=== PATIENT | female | born 1990 | race African-American/Black ===

== ENCOUNTER 2019-01-07 09:46 | Observation (INO) | payer SELFPAY ==
[~2019-01-07] VITALS: Ht 170.2 cm; Wt 74.0 kg
[2019-01-07] MEDS ORDERED: ONDANSETRON HCL INJ 2MG/ML 2ML 2 MG/ML VIAL IV STA (10:50)
[2019-01-07] MEDS ORDERED: SODIUM CHLORIDE 0.9% 1000ML 1,000 ML IV STA (10:50)
[2019-01-07 11:09] LABS: CLARITY,URINE HAZY (CLEAR); COLOR,URINE YELLOW (YELLOW)
[2019-01-07 11:11] LABS: LEUKOCYTE ESTERASE ,URINE NEGATIVE (NEGATIVE); NITRITE,URINE NEGATIVE (NEGATIVE); PROTEIN,URINE DIPSTICK NEGATIVE (NEGATIVE)
[2019-01-07 11:12] LABS: BILIRUBIN,URINE NEGATIVE (NEGATIVE); KETONES,URINE 2+ (NEGATIVE); URINE UROBILINOGEN 0.2 mg/dL (0.2 - 1)
[2019-01-07 11:13] LABS: PREGNANCY TEST, URINE NEGATIVE (NEGATIVE)
[2019-01-07 11:18] LABS: EPITHELIAL CELLS,URINE MODERATE /LPF
[2019-01-07 11:19] LABS: BACTERIA,URINE FEW /HPF; RBC,URINE 0-5 /HPF (0-5); WBC,URINE (MAN) 0-5 /HPF (0-5)
--- NOTE | 2019-01-07 11:52 | NUR ---
CURT COLEMAN IN TO [facility] IN TREATMENT ROOM. SL STARTED, BLOOD COLLECTED AND URINE COLLECTED, SENT TO LAB ORDERED.
[2019-01-07] MEDS ORDERED: DICYCLOMINE HCL 20 MG/2 ML VIAL IM ONE (12:00)
[2019-01-07 12:43] LABS: BASOPHILS % 0.2 % (0.0-1.0); HEMATOCRIT 40.7 % (34.2-44.1); HEMOGLOBIN 14.2 g/dL (12.0-16.0); LYMPHOCYTES # (AUTO) 1.7 (1.0-3.2); LYMPHOCYTES % 8.7 % (18.0-39.1); MEAN CORPUSCULAR HEMOGLOBIN 32.7 pg (28-32); MEAN CORPUSCULAR HGB CONC 34.9 g/dL (31-35); MEAN CORPUSCULAR VOLUME 93.8 fL (81-99); MONOCYTES # (AUTO) 1.8 (0.2-0.8); NEUTROPHILS # (AUTO) 16.1 (2.1-6.9); NEUTROPHILS % 81.5 % (38.7-80.0); PLATELET COUNT 298 x10e3/uL (140-360); RED BLOOD COUNT 4.34 x10e6/uL (3.6-5.1); RED CELL DISTRIBUTION WIDTH 11.9 % (11.7-14.4)
[2019-01-07 13:00] LABS: ALANINE AMINOTRANSFERASE 10 IU/L (0-55); ALBUMIN 4.1 g/dL (3.5-5.0); ALKALINE PHOSPHATASE 67 IU/L (40-150); AMYLASE 78 U/L (25-125); ANION GAP 13.3 mmol/L (8-16); BLOOD UREA NITROGEN 5 mg/dL (7-26); BUN/CREATININE RATIO 6 (6-25); CALCIUM 9.9 mg/dL (8.4-10.2); CARBON DIOXIDE 27 mmol/L (22-29); CHLORIDE 95 mmol/L (98-107); CREATININE, SERUM 0.77 mg/dL (0.57-1.11); EST GLOMERULAR FILTRATION RATE > 60 ML/MIN (60-); GLUCOSE 105 mg/dL (74-118); POTASSIUM 3.3 mmol/L (3.5-5.1); SODIUM 132 mmol/L (136-145)
[2019-01-07 13:02] LABS: LIPASE < 4 U/L (8-78)
[2019-01-07] MEDS ORDERED: CEFOXITIN SOD 1 GM VIAL ONE (13:25)
[2019-01-07] MEDS ORDERED: ROCURONIUM BROMIDE 10 MG/ML 5ML VIAL ONE (13:25)
[2019-01-07] MEDS ORDERED: SUCCINYLCHOLINE 200 MG/10 ML SYR ONE (13:25)
[2019-01-07] MEDS ORDERED: KETOROLAC TROMETHAMINE 30 MG/ML VIAL ONE (13:25)
[2019-01-07] MEDS ORDERED: DEXAMETHASONE SOD PHOS INJ 4 MG/ML VIAL ONE (13:25)
[2019-01-07] MEDS ORDERED: PROPOFOL IV EMULSION 10 MG/ML 20 ML VIAL ONE (13:25)
[2019-01-07] MEDS ORDERED: LIDOCAINE HCL 2% LOCAL INJ 5 ML SDV VIAL INJ ONE (13:25)
[2019-01-07] MEDS ORDERED: SEVOFLURANE INHAL SOLN 250 ML PEN BTL ONE (13:25)
[2019-01-07] MEDS ORDERED: ONDANSETRON HCL INJ 2MG/ML 2ML 2 MG/ML VIAL ONE (13:25)
--- NOTE | 2019-01-07 13:58 | Diagnostic Imaging Report ---
EXAMINATION: Right upper quadrant ultrasound CLINICAL INDICATION: Back pain, cholelithiasis COMPARISON: None DISCUSSION: Transverse and longitudinal images of the right upper quadrant were obtained. The liver is normal in size measuring 13.4centimeters in length in the right midclavicular line and shows normal echogenicity. No focal masses are seen in the liver. There is no intrahepatic biliary dilatation. The common bile duct is normal in caliber and measures 0.3 cm. The main portal vein is normal in caliber and measures 0.8 cm with normal hepatopetal flow. The gallbladder is normal in appearance without stones, wall thickening or pericholecystic fluid. The sonographic Rodriguez's sign is negative. The visualized portions of the pancreatic body are unremarkable. The right kidney measures 11.5 centimeters in length. There is normal renal cortical echogenicity and no hydronephrosis, mass or shadowing calculi. 0.9 cm superior simple cyst. 1.4 cm isoechoic lesion in the superior pole. The visualized portions of the great vessels are normal. No free fluid is seen. IMPRESSION: Gallbladder normal. Simple right renal cyst 0.9 cm. Indeterminate right renal hypoechoic lesion 1.4 cm. Signed by: Dr. Elian Singh M.D. on 01/07/2019 1:55 PM
--- NOTE | 2019-01-07 14:08 | Diagnostic Imaging Report ---
EXAM: CT of the abdomen and pelvis WITH contrast HISTORY: Pain, rule out appendicitis COMPARISON: Right upper quadrant ultrasound performed earlier the same date.. TECHNIQUE: The abdomen and pelvis were scanned utilizing a multidetector helical scanner. Coronal and sagittal reformats are provided. PROTOCOL: Routine IV CONTRAST: 100 cc of Isovue-370. ORAL CONTRAST: Water RADIATION DOSE: Total DLP: 314.86 mGy*cm Estimated effective dose: (DLP x 0.015 x size factor) Dose modulation, iterative reconstruction, and/or weight based adjustment of the mA/kV was utilized to reduce the radiation dose to as low as reasonably achievable. COMPLICATIONS: None FINDINGS: LOWER THORAX: Unremarkable. HEPATOBILIARY: Punctate calcification within the right lobe. No mass. No biliary dilation. No calcified gallstone. SPLEEN: No splenomegaly. PANCREAS: No focal masses or ductal dilatation. ADRENALS: No discrete adrenal nodule. KIDNEYS/URETERS: No hydronephrosis, stones, or definite solid mass lesions. A subcentimeter hypodensity near the superior pole of the right kidney, compatible with a small cyst seen on the comparison ultrasound. PELVIC ORGANS/BLADDER: The uterus is anteflexed. A 2.5 cm fluid density within the right ovary, compatible with a dominant follicle. GI TRACT: Calcific densities (appendicoliths) at the mid appendix with dilation and fluid-filled lumen of the distal appendix with surrounding fat stranding. No evidence of rupture or periappendiceal abscess. PERITONEUM / RETROPERITONEUM: No free air or fluid. LYMPH NODES: No pathologically enlarged lymph node. VESSELS: Unremarkable. BONES: No aggressive osseous lesion or acute fracture. Ventral angulation of the sacrococcygeal junction. SOFT TISSUES: There density foci within the superficial adipose tissue overlying the right gluteal region, correlate for recent injection. IMPRESSION: Acute appendicitis. Discussed with Dr. Noriega via phone on January 07, 2019 at 1402. Signed by: Dr. Joseph Recio D.O., M.M.M. on 01/07/2019 2:04 PM
[2019-01-07] MEDS ORDERED: PIPER-TAZ 3.375 GM 50 ML IV STA (14:12)
[2019-01-07] MEDS ORDERED: MORPHINE SULFATE INJ 4 MG/ML INJ 1ML IV NR (14:30)
[2019-01-07] MEDS ORDERED: ONDANSETRON HCL INJ 2MG/ML 2ML 2 MG/ML VIAL IV NR (14:30)
[2019-01-07] MEDS: SODIUM CHLORIDE 0.9% 1000ML 1,000 ML IV SCH ×2 (14:36→23:00)
--- OUTSIDE RECORDS SUMMARY | 2019-01-07 14:46 | XMS REPORT ---
Author Author 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 Allergies, Adverse Reactions, Alerts This patient has no known allergies or adverse reactions. Medications This patient has no known medications. Results Test Description Test Time Test Comments Text Results Atomic Results Result Comments CT ABDOMEN/PELVIS W 2019-01-07 13:48:00 [place] [address] Patient Name: KRISTI MARIO MR #: [id number] : 1990 Age/Sex: 28/F Req #: [id number] Adm Physician: Ordered by: VIRGINIA COATES [employer] SPECIALIST Report #: [id number] Location: ER Room/Bed: Procedure: [id number] CT/CT ABDOMEN/PELVIS W Exam Date: 01/07/19 Exam Time: 1327 REPORT STATUS: Signed EXAM: CT of the abdomen and pelvis WITH contrast HISTORY: Pain, rule out appendicitis COMPARISON: Right upper quadrant ultrasound performed earlier the same date.. TECHNIQUE: The abdomen and pelvis were scanned utilizing a multidetector helical scanner. Coronal and sagittal reformats are provided. PROTOCOL: Routine IV CONTRAST: 100 cc of Isovue-370. ORAL CONTRAST: Water RADIATION DOSE: Total DLP: 314.86 mGy*cm Estimated effective dose: (DLP x 0.015 x size factor) Dose modulation, iterative reconstruction, and/or weight based adjustment of the mA/kV was utilized to reduce the radiation dose to as low as reasonably achievable. COMPLICATIONS: None FINDINGS: LOWER THORAX: Unremarkable. HEPATOBILIARY: Punctate calcification within the right lobe. No mass. No biliary dilation. No calcified gallstone. SPLEEN: No splenomegaly. PANCREAS: No focal masses or ductal dilatation. ADRENALS: No discrete adrenal nodule. KIDNEYS/URETERS: No hydronephrosis, stones, or definite solid mass lesions. A subcentimeter hypodensity near the superior pole of the right kidney, compatible with a small cyst seen on the comparison ultrasound. PELVIC ORGANS/BLADDER: The uterus is anteflexed. A 2.5 cm fluid density within the right ovary, compatible with a dominant follicle. GI TRACT: Calcific densities (appendicoliths) at the mid appendix with dilation and fluid-filled lumen of the distal appendix with surrounding fat stranding. No evidence of rupture or periappendiceal abscess. PERITONEUM / RETROPERITONEUM: No free air or fluid. LYMPH NODES: No pathologically enlarged lymph node. VESSELS: Unremarkable. BONES: No aggressive osseous lesion or acute fracture. Ventral angulation of the sacrococcygeal junction. SOFT TISSUES: There density foci within the superficial adipose tissue overlying the right gluteal region, correlate for recent injection. IMPRESSION: Acute appendicitis. Discussed with Dr. Noriega via phone on January 07, 2019 at 1402. Signed by: Dr. Man Recio D.O., M.M.M. on 01/07/2019 2:04 PM Dictated By: MAN RECIO DO 1405 Transcribed By: ALEX on 01/07/19 1402 COPY TO: VIRGINIA COATES NP GALLBLADDER 2019-01-07 13:34:00 [place] [address] Patient Name: KRISTI MARIO MR #: [id number] : 1990 Age/Sex: 28/F Req #: [id number] Adm Physician: Ordered by: VIRGINIA COATES [employer] SPECIALIST Report #: [id number] Location: ER Room/Bed: Procedure: [id number] US/US GALLBLADDER Exam Date: Exam Time: REPORT STATUS: Signed EXAMINATION: Right upper quadrant ultrasound CLINICAL INDICATION: Back pain, cholelithiasis COMPARISON: None DISCUSSION: Transverse and longitudinal images of the right upper quadrant were obtained. The liver is normal in size measuring 13.4centimeters in length in the right midclavicular line and shows normal echogenicity. No focal masses are seen in the liver. There is no intrahepatic biliary dilatation. The common bile duct is normal in caliber and measures 0.3 cm. The main portal vein is normal in caliber and measures 0.8 cm with normal hepatopetal flow. The gallbladder is normal in appearance without stones, wall thickening or pericholecystic fluid. The sonographic Rodriguez's sign is negative. The visualized portions of the pancreatic body are unremarkable. The right kidney measures 11.5 centimeters in length. There is normal renal cortical echogenicity and no hydronephrosis, mass or shadowing calculi. 0.9 cm superior simple cyst. 1.4 cm isoechoic lesion in the superior pole. The visualized portions of the great vessels are normal. No free fluid is seen. IMPRESSION: Gallbladder normal. Simple right renal cyst 0.9 cm. Indeterminate right renal hypoechoic lesion 1.4 cm. Signed by: Dr. Cong Martinze M.D. on 01/07/2019 1:55 PM Dictated By: CONG MARTINEZ MD 1135 Transcribed By: ALEX on 01/07/19 2112 COPY TO: VIRGINIA COATES NP
[2019-01-07] MEDS ORDERED: FENTANYL CITRATE/PF 100MCG/2 ML INJ ONE (14:55)
[2019-01-07] MEDS ORDERED: MIDAZOLAM HCL 2 MG/2 ML VIAL ONE (14:55)
[2019-01-07] MEDS ORDERED: BUPIVACAINE 0.25%/EPI 30ML SDV INJ ONE (16:19)
--- NOTE | 2019-01-07 16:25 | NUR ---
PT TO OR VIA TRANSPORT TEAM. PT'S FAMILY AT HER SIDE.
[2019-01-07] MEDS ORDERED: MEPERIDINE HCL INJ 25 MG/ML VIAL ONE ×2 (18:02→18:10)
[2019-01-07] MEDS ORDERED: IOPAMIDOL 370 MG/ML 200 ML INFUS..BTL INJ ONE (18:19)
[2019-01-07] MEDS ORDERED: SODIUM CHLORIDE 0.9% 50ML 50 ML ONE (18:19)
[2019-01-07] MEDS ORDERED: HYDROMORPHONE 2MG/ML 2 MG/ML ML ONE (18:24)
[2019-01-07] MEDS ORDERED: PROMETHAZINE HCL (IM) 25 MG/ML VIAL ONE (18:36)
[2019-01-07 20:00] VITALS: BP 107/64
[2019-01-07] MEDS: MORPHINE SULFATE INJ 4 MG/ML INJ 1ML IV PRN (20:14)
[2019-01-07 21:20] LABS: LYMPHOCYTES % (MANUAL) 14 % (19-48); MONOCYTES % (MANUAL) 6 % (3.4-9.0); NEUTROPHILS % (MANUAL) 80 % (40-74)
[2019-01-07 21:22] LABS: PLATELET ESTIMATE ADEQUATE; PLATELET MORPHOLOGY COMMENT NORMAL; RBC MORPHOLOGY COMMENT NORMAL
[2019-01-07] MEDS: ONDANSETRON HCL INJ 2MG/ML 2ML 2 MG/ML VIAL IV PRN (22:03)
[2019-01-07] MEDS: PIPER-TAZ 3.375 GM 50 ML IV SCH (22:03)
[2019-01-07 23:06] VITALS: BP 107/64
[2019-01-08] VITALS: BP 97/52
--- NOTE | 2019-01-08 00:30 | Consultation ---
DATE OF CONSULTATION: CHIEF COMPLAINT: Abdominal pain. HISTORY OF PRESENT ILLNESS: The patient is a 28-year-old female with 1-day history of pain in the right lower quadrant with repeated bouts of vomiting. No diarrhea, fever, or chills. PAST MEDICAL HISTORY: Negative. She has no previous surgery. ALLERGIES: THE PATIENT HAD NO DRUG ALLERGIES. SOCIAL HABITS: She does not smoke or drink alcohol. REVIEW OF SYSTEMS: No chest pain or shortness of breath or cough. PHYSICAL EXAMINATION: VITAL SIGNS: Stable, afebrile. GENERAL: She is awake, alert, in moderate discomfort. HEENT: Sclerae are nonicteric. NECK: Supple. LUNGS: Clear. HEART: Regular rate and rhythm. ABDOMEN: Soft with guarding tenderness in the right lower quadrant. LABORATORY DATA: White cell count is 19.7, hemoglobin of 14. Creatinine is 0.7. CT of the abdomen show evidence of acute appendicitis. ASSESSMENT: Acute appendicitis. PLAN: Laparoscopic appendectomy. Attendant risks discussed. Blayne Mo MD DNL/MODL /[id number]
--- NOTE | 2019-01-08 00:55 | Operative Report ---
DATE OF PROCEDURE: 01/07/2019 SURGEON: Blayne Mo MD PREOPERATIVE DIAGNOSIS: Appendicitis. POSTOPERATIVE DIAGNOSIS: Appendicitis. PROCEDURE: Laparoscopic appendectomy. PESTICIDE CHEMIST: None. ANESTHESIA: General, Dr. Alamo. INDICATION: A 28-year-old female with history of abdominal pain for one day with vomiting. CT scan showed appendicitis. The patient has consented for laparoscopic appendectomy. Attendant risks discussed. PROCEDURE FINDING: Gangrenous appendicitis without rupture. DESCRIPTION OF PROCEDURE: The patient was brought to the OR intubated. Abdomen was prepped with alcohol and draped in sterile fashion. Laparoscopic access carried out with an infraumbilical incision and a 12 mm port for insufflation. Under direct vision, the port site was placed in the right upper quadrant and suprapubic. The appendix noted to be grossly inflamed and gangrenous, but nonperforated. Next, the appendix isolated with blunt dissection. Next, the appendix was controlled with the EndoGIA stapler blue load. The mesentery was controlled with a vascular load of the same stapler. Appendix was detached. It was placed in an Endopouch and retrieved out of the peritoneal cavity. Operative field was then irrigated. Hemostasis was achieved. All ports were then removed under direct vision. Fascial closure with #0 Vicryl. Skin was closed with subcuticular stitch. The patient was extubated and transported to recovery room. ESTIMATED BLOOD LOSS: 5 mL. Blayne Mo MD DNL/MODL /[id number]
[2019-01-08] MEDS: MORPHINE SULFATE INJ 4 MG/ML INJ 1ML IV PRN ×2 (01:56→08:40)
[2019-01-08] MEDS: ONDANSETRON HCL INJ 2MG/ML 2ML 2 MG/ML VIAL IV PRN ×2 (01:56→08:40)
[2019-01-08 04:00] VITALS: BP 113/56
[2019-01-08] MEDS: PIPER-TAZ 3.375 GM 50 ML IV SCH ×2 (05:36→14:00)
--- NOTE | 2019-01-08 07:19 | NUR ---
Received patient in report this morning. Patient is resting in bed at this time. 3 family members at bedside. No S&S of distress noted at this time.
[2019-01-08 08:16] VITALS: BP 93/50
[2019-01-08 08:20] LABS: BASOPHILS % 0.3 % (0.0-1.0); EOSINOPHILS % 0.1 % (0.0-6.0); HEMATOCRIT 32.1 % (34.2-44.1); HEMOGLOBIN 11.1 g/dL (12.0-16.0); LYMPHOCYTES # (AUTO) 2.8 (1.0-3.2); MEAN CORPUSCULAR HEMOGLOBIN 32.8 pg (28-32); MEAN CORPUSCULAR HGB CONC 34.6 g/dL (31-35); MONOCYTES % 6.9 % (4.4-11.3); NEUTROPHILS % 72.2 % (38.7-80.0); PLATELET COUNT 213 x10e3/uL (140-360); RED BLOOD COUNT 3.38 x10e6/uL (3.6-5.1); RED CELL DISTRIBUTION WIDTH 12.2 % (11.7-14.4)
[2019-01-08 08:37] LABS: ALANINE AMINOTRANSFERASE 6 IU/L (0-55); ALBUMIN/GLOBULIN RATIO 1.1 (0.8-2.0); ALKALINE PHOSPHATASE 46 IU/L (40-150); ANION GAP 9.3 mmol/L (8-16); BLOOD UREA NITROGEN < 5 mg/dL (7-26); CARBON DIOXIDE 24 mmol/L (22-29); CHLORIDE 106 mmol/L (98-107); CREATININE, SERUM 0.69 mg/dL (0.57-1.11); EST GLOMERULAR FILTRATION RATE > 60 ML/MIN (60-); GLUCOSE 90 mg/dL (74-118); POTASSIUM 3.3 mmol/L (3.5-5.1); SODIUM 136 mmol/L (136-145)
[2019-01-08 08:47] LABS: BUN/CREATININE RATIO 7 (6-25)
[2019-01-08 08:48] LABS: CALCIUM 8.3 mg/dL (8.4-10.2)
[2019-01-08] MEDS: SODIUM CHLORIDE 0.9% 1000ML 1,000 ML IV SCH ×2 (09:20→14:06)
--- NOTE | 2019-01-08 09:35 | NUR ---
Patient is alert and oriented in bed. Moderate pain (4, down from 7) at lap sites. Dressings dry and intact. Skin intact. No edema noted. Lung sounds clear. Bowel sounds active. Patient has not yet passed gas. Explained importance of getting up and walking, patient ambulated down myles from [id number]. Slight pain increase reported post ambulation. SCDs reapplied upon returning to bed.
[2019-01-08] MEDS ORDERED: POTASSIUM CHLORIDE 20 MEQ TAB CR PO STA (09:58)
[2019-01-08 11:04] VITALS: BP 93/50
[2019-01-08 12:07] VITALS: BP 98/53
[2019-01-08] MEDS: HYDROCODONE/APAP 5MG-325MG TAB PO PRN ×2 (12:54→17:01)
[2019-01-08 16:25] VITALS: BP 114/59
--- NOTE | 2019-01-08 19:00 | NUR ---
REPORT TAKEN FROM AM RN.WALKING ROUNDS DONE. IS IN THE UNIT .RECEIVED DISCHARGE ORDER.
--- NOTE | 2019-01-08 20:00 | NUR ---
DISCHARGE ASSESSMENT DONE.TROCHAR SITES DRY AND INTACT.IV CANNULA REMOVED AND APPLIED PRESSURE DRESSING.DISCHARGE EDUCATION GIVEN.IN FORMED THE PT THAT CALL YOU DOCTOR OR GO TO THE ER IF YOU DEVELOP BLEEDING,FEVER REDNESS OR SWELLING.VERBALIZED UNDERSTANDING.PT LEFT THE UNIT IN A WHEEL CHAIR IN A STABLE CONDITION.
--- NOTE | 2019-01-10 04:30 | Discharge Summary ---
DISCHARGE DIAGNOSIS: Acute appendicitis, status post laparoscopic appendectomy. HISTORY OF PRESENT ILLNESS: The patient is a lady, who presented with a right lower quadrant pain and was found to have acute appendicitis on CT scan as well as leukocytosis. She was taken to the OR by Dr. Mo, who moved in with laparoscopic appendectomy. Postoperatively, the patient is doing well. She is able to ambulate. Her pain was controlled with p.o. medication. She was able to tolerate her p.o. intake and white count improved. Her potassium was replaced. At the time of discharge, she was wanting to go home. She was doing well and she will follow up with Dr. Mo in 1 to 2 weeks as well as her primary care physician. Please see hospital chart for full details. MD EARLENE Eaton/DARRYL /[id number]
== END 2019-01-08 19:52 | disposition home or self-care (01) ==
LOC: ER 09:46 → ERHOLD 14:06 → MED/SURG 18:32
PROVIDERS: ADMIT Internal Medicine; ATTEND Internal Medicine
DX: K35.80 Unspecified acute appendicitis (principal); E87.6 Hypokalemia
CPT/HCPCS: 36415 ×2; 44970; 74177; 76705; 80053 ×2; 81001; 81025; 82150; 83690; 84702; 85025 ×2; 87086; 88304; G0378 ×2; J0500; J0694; J1100; J1170; J1885; J2001; J2175; J2250; J2270 ×2; J2405 ×2; J2543 ×2; J2550; J2704; J7030 ×2; Q9967